=== PATIENT | male | born 1975 | race Caucasian/White ===

== ENCOUNTER 2017-10-21 08:13 | Emergency (ER) | payer BC ==
--- NOTE | 2017-10-21 08:32 | Emergency Department Record ---
History of Present Illness - General Chief Complaint: Altered Mental Status Stated Complaint: ALTERED MENTAL STATE Time Seen by Provider: 10/21/17 08:24 Source: Patient Mode of Arrival: Ambulatory Limitations: No limitations - History of Present Illness Initial Comments: The patient is here by EMS due to being forced to come here by the police. The patient was walking down [address] on the side of the road and due to that police were called. They felt the patient may have been acting erratically so he was forced to come to the ER. The patient made no suicidal or homicidal threats to the police or EMS. Presently the patient denies any problems or issues and does not want to be here. He states he was walking to [place] from [facility] to get something to eat. He again denies any suicidal or homicidal ideation and also denies hearing any voices. The patient also denies any drug use or injury. MD Complaint: Altered mental status Onset/Timin -: Minutes(s) - Gisela Coma Scale Eye Response: (4) Open spontaneously Motor Response: (6) Obeys commands Verbal Response: (5) Oriented Gisela Total: 15 - Related Data Allergies Allergy/AdvReac Type Severity Reaction Status Date / Time No Known Allergies Allergy HYPERSENSIT Verified 10/21/17 08:24 [facility] Travel Screening - Travel/Exposure Within Last 30 Days Have you traveled within the last 30 days?: No - Travel/Exposure Within Last Year Have you traveled outside the [place] in the last year?: No - Additonal Travel Details Have you been exposed to anyone with a communicable illness?: No - Travel Symptoms Symptom Screening: None Review of Systems Constitutional: Denies: Chills, Fever Eyes: Denies: Eye discharge ENT: Denies: Congestion Respiratory: Denies: Cough, Dyspnea Past Medical History - SOCIAL HISTORY Smoking Status: Current every day smoker Alcohol Use: None Drug Use: None - RESPIRATORY Hx Respiratory Disorders: No - CARDIOVASCULAR Hx Cardio Disorders: No - NEURO Hx Neuro Disorders: No - GI Hx Reflux: Yes - Hx Genitourinary Disorders: No - ENDOCRINE Hx Thyroid Disease: Yes - PSYCH Hx Psych Problems: No Family Medical History Any Significant Family History?: Yes Physical Exam - General General Appearance: Alert, Oriented x3, Cooperative, No acute distress - Head Head exam: Atraumatic, Normocephalic, Normal inspection - Eye Eye exam: Normal appearance, PERRL, EOMI - ENT Throat exam: Normal inspection. negative: Tonsillar erythema, Tonsillar exudate - Neck Neck exam: Normal inspection, Full ROM. negative: Tenderness - Respiratory Respiratory exam: Normal lung sounds bilaterally. negative: Respiratory distress - Cardiovascular Cardiovascular Exam: Regular rate, Normal rhythm, Normal heart sounds - GI/Abdominal GI/Abdominal exam: Soft, Normal bowel sounds. negative: Tenderness - Extremities Extremities exam: negative: Normal inspection (There are healing gibson to the L arm.) - Neurological Neurological exam: Alert, Normal gait, Oriented X3 (The patient is answering all questions appropriately. His speech is clear and he exhibits no signs of kody or being under the influence of drugs.). negative: Abnormal gait, Altered , Motor sensory deficit - Psychiatric Psychiatric exam: Normal affect, Normal mood. negative: Agitated, Anxious, Depressed, Flat affect, Homicidal ideation, Manic, Suicidal ideation - Skin Skin exam: negative: Rash Course Vital Signs 10/21/17 08:16 Temperature 97.9 F Pulse Rate 85 Respiratory 18 Rate Blood Pressure 130/96 Pulse Ox 97 - Reevaluation(s) Reevaluation #1: I explained to the patient we would be happy to check some lab work to evaluate his thyroid gland but her refused. He stated he did not want to be here and was refusing his MSE as required by law. Due to that fact and the fact the patient clearly had proper decision making capacity and no suicidal or homicidal ideation I did discharge him from the ER. 10/21/17 08:40 Disposition Disposition: Discharge Clinical Impression: Confusion, hx of, without neuro findings Disposition: Home, Self-Care Condition: (2) Stable Instructions: Second Degree Burn (ED) Additional Instructions: Please keep the burn areas clean. Return to the ER for any problems. Forms: Patient Portal Access Time of Disposition: 08:32 Quality - Quality Measures Quality Measures: N/A - Blood Pressure Screening View Details: Yes Does Patient Have Any of the Following: No Blood Pressure Classification: Hypertensive Reading Systolic Measurement: 130 Diastolic Measurement: 96 Screening for High Blood Pressure: < First Hypertensive BP, F/U Documented > [ [id number]] First Hypertensive Follow-up Interventions: Referral to alternative/primary care provider.
== END 2017-10-21 08:41 | disposition home or self-care (01) ==
LOC: ER 08:13
DX: R41.82 Altered mental status, unspecified (principal); R41.0 Disorientation, unspecified; T22.20XA Burn of second degree of shoulder and upper limb, except wrist and hand, unspecified site, initial encounter; F17.210 Nicotine dependence, cigarettes, uncomplicated
CPT/HCPCS: 99282

== ENCOUNTER 2017-10-22 00:55 | Emergency (ER) | payer BC ==
[2017-10-22 01:25] LABS: BASO % 0.5 % (0-6); EOS % 0.3 % (0-6); GRAN % 77.1 % (47-80); HEMATOCRIT 43.9 % (42.0-52.0); HEMOGLOBIN 15.2 gm/dl (14.0-18.0); LYMPH % 15.9 % (16-45); MEAN CORPUSCULAR HEMOGLOBIN 31.1 pg (27-33); MEAN CORPUSCULAR HGB CONC 34.6 g/dl (32-36); MONO % 6.2 % (0-9); PLATELET COUNT 374 K/uL (130-400); RED BLOOD COUNT 4.88 M/uL (4.40-5.70); WHITE BLOOD COUNT W/O DIFF 14.6 K/uL (4.2-12.2)
[2017-10-22 01:32] LABS: BILIRUBIN,TOTAL 0.8 mg/dL (0.2-1.0); CREATININE 1.5 mg/dL (0.7-1.2)
[2017-10-22 01:33] LABS: TOTAL PROTEIN 7.6 g/dL (6.6-8.7)
[2017-10-22 01:38] LABS: ALB/GLOB RATIO 1.5 (1.1-1.8); ALBUMIN 4.6 g/dL (4.0-5.0)
[2017-10-22 01:59] LABS: URINE APPEARANCE CLEAR; URINE BILIRUBIN SMALL (NEGATIVE); URINE BLOOD MODERATE (NEGATIVE); URINE COLOR STRAW; URINE GLUCOSE (UA) NEGATIVE (NEGATIVE); URINE KETONE TRACE (NEGATIVE); URINE LEUKOCYTE ESTERASE NEGATIVE (NEGATIVE); URINE NITRITE NEGATIVE (NEGATIVE)
[2017-10-22 02:00] LABS: URINE BACTERIA NONE SEEN; URINE EPITHELIAL CELLS 0 - 2 (FEW); URINE WBC 0 - 2 (0-2/hpf)
--- NOTE | 2017-10-22 02:00 | Emergency Department Record ---
History of Present Illness - General Chief Complaint: General Stated Complaint: MEDICAL CLEARENCE Time Seen by Provider: 10/22/17 00:57 Source: Patient, Police, EMS Mode of Arrival: [facility] Limitations: No limitations - History of Present Illness Initial comments: pt was brought in by police for medical clearence as he had been having bizaar behaviour. pt denies hearing voices or hallucinations. he does admit to a hx of iv drug abuse. pt was reportedly sitting in road and looking through windows , pt denies homicidality and suicidality Associated Symptoms: Denies other symptoms Treatments Prior to Arrival: None - Gisela Coma Scale Eye Response: (4) Open spontaneously Motor Response: (6) Obeys commands Verbal Response: (5) Oriented Gisela Total: 15 - Related Data Previous Rx's Medication Instructions Recorded Levothyroxine Sodium 100 mcg PO DAILY #30 tablet 10/22/17 Allergies Allergy/AdvReac Type Severity Reaction Status Date / Time No Known Allergies Allergy HYPERSENSIT Verified 10/21/17 08:24 IVITY Travel Screening - Travel/Exposure Within Last 30 Days Have you traveled within the last 30 days?: No - Travel Symptoms Symptom Screening: None Review of Systems Reviewed: No additional complaints except as noted below Constitutional: Reports: As per HPI. Denies: Chills, Fever, Malaise, Night sweats, Weakness, Weight change Eyes: Reports: As per HPI. Denies: Eye discharge, Eye pain, Photophobia, Vision change ENT: Reports: As per HPI. Denies: Congestion, Dental pain, Ear pain, Epistaxis , Hearing loss, Throat pain Respiratory: Reports: As per HPI. Denies: Cough, Dyspnea, Hemoptysis, Stridor, Wheezes Cardiovascular: Reports: As per HPI. Denies: Arrhythmia, Chest pain, Dyspnea on exertion, Edema, Murmurs, Orthopnea, Palpitations, Paroxysmal nocturnal dyspnea, Rheumatic Fever, Syncope Endocrine: Reports: As per HPI. Denies: Fatigue, Heat or cold intolerance, Polydipsia, Polyuria Gastrointestinal: Reports: As per HPI. Denies: Abdominal pain, Constipation, Diarrhea, Hematemesis, Hematochezia, Melena, Nausea, Vomiting Genitourinary: Reports: As per HPI. Denies: Dysuria, Frequency, Hematuria, Incontinence, Retention, Testicular pain, Testicular mass, Urgency Musculoskeletal: Reports: As per HPI. Denies: Arthralgia, Back pain, Gout, Joint swelling, Myalgia, Neck pain Skin: Reports: As per HPI. Denies: Bruising, Change in color, Change in hair/ nails, Lesions, Pruritus, Rash Neurological: Reports: As per HPI. Denies: Abnormal gait, Confusion, Headache, Numbness, Paresthesias, Seizure, Tingling, Tremors, Vertigo, Weakness Psychiatric: Reports: As per HPI. Denies: Anxiety, Auditory hallucinations, Depression, Homicidal thoughts, Suicidal thoughts, Visual hallucinations Hematological/Lymphatic: Reports: As per HPI. Denies: Anemia, Blood Clots, Easy bleeding, Easy bruising, Swollen glands Past Medical History - SOCIAL HISTORY Smoking Status: Current every day smoker Alcohol Use: None Drug Use: None - RESPIRATORY Hx Respiratory Disorders: No - CARDIOVASCULAR Hx Cardio Disorders: No - NEURO Hx Neuro Disorders: No - GI Hx GI Disorders: Yes Hx Reflux: Yes (DENIES) - Hx Genitourinary Disorders: No - ENDOCRINE Hx Endocrine Disorders: Yes Hx Thyroid Disease: Yes - PSYCH Hx Psych Problems: No - HEMATOLOGY/ONCOLOGY Hx Hematology/Oncology Disorders: No Family Medical History Any Significant Family History?: No Family Hx Comment (NOT TO BE USED IN PLACE OF ITEMS BELOW): denies Physical Exam - General General Appearance: Alert, Oriented x3, Cooperative, No acute distress - Head Head exam: Normal inspection - Eye Eye exam: Normal appearance, PERRL, EOMI Pupils: Normal accommodation - ENT ENT exam: Normal exam, Mucous membranes moist, Normal external ear exam, Normal orophraynx Ear exam: Normal external inspection. negative: External canal tenderness Nasal Exam: Normal inspection. negative: Discharge, Sinus tenderness Mouth exam: Normal external inspection, Tongue normal Teeth exam: Normal inspection. negative: Dental caries Throat exam: Normal inspection. negative: Tonsillar erythema, Tonsillar exudate - Neck Neck exam: Normal inspection, Full ROM. negative: Tenderness - Respiratory Respiratory exam: Normal lung sounds bilaterally. negative: Respiratory distress - Cardiovascular Cardiovascular Exam: Regular rate, Normal rhythm, Normal heart sounds - GI/Abdominal GI/Abdominal exam: Soft, Normal bowel sounds. negative: Tenderness - Rectal Rectal exam: Deferred - exam: Deferred - Extremities Extremities exam: Normal inspection, Full ROM, Normal capillary refill. negative: Tenderness - Back Back exam: Reports: Normal inspection, Full ROM. Denies: Muscle spasm, Rash noted, Tenderness - Neurological Neurological exam: Alert, CN II-XII intact, Normal gait, Oriented X3 - Psychiatric Psychiatric exam: Normal affect, Normal mood - Skin Skin exam: Dry, Intact, Normal color, Warm Course Vital Signs 10/22/17 10/22/17 01:00 01:02 Temperature 98.2 F 98.2 F Pulse Rate [ 72 Pulse Ox Probe] Respiratory 20 18 Rate Blood Pressure 112/77 [Left Arm] Pulse Ox 98 - Reevaluation(s) Reevaluation #1: 10/22/17 02:02 records were obtained from [facility] and [facility] . he had a negative head ct a month ago. he had an ammonia level of 120 a month ago as well. Medical Decision Making - Lab Data Result diagrams: 10/22/17 01:17 10/22/17 01:17 Lab Results 10/22/17 10/22/17 10/22/17 Range/Units 01:17 01:17 01:17 WBC 14.6 H (4.2-12.2) K/uL RBC 4.88 (4.40-5.70) M/uL Hgb 15.2 (14.0-18.0) gm/dl Hct 43.9 (42.0-52.0) % MCV 90.0 (81-97) fl MCH 31.1 (27-33) pg MCHC 34.6 (32-36) g/dl RDW 13.0 (11.5-14.5) % Plt Count 374 (130-400) K/uL MPV 9.0 (7.4-10.4) fl Gran % 77.1 (47-80) % Lymphocytes % 15.9 L (16-45) % Monocytes % 6.2 (0-9) % Eosinophils % 0.3 (0-6) % Basophils % 0.5 (0-6) % Sodium 138 (136-145) mmol/L Potassium 4.5 (3.4-4.5) mmol/L Chloride 95 L (98-107) mmol/L Carbon Dioxide 25.0 (22-29) mmol/L Anion Gap 18.0 H (7-16) BUN 32 H (6-20) mg/dL Creatinine 1.5 H (0.7-1.2) mg/dL Estimated GFR 54 mL/min Random Glucose 90 (74-109) mg/dL Calcium 9.8 (8.6-10.0) mg/dL Total Bilirubin 0.80 (0.2-1.0) mg/dL AST 89 H (10.0-50.0) U/L ALT 69 H (<41) U/L Alkaline Phosphatase 99 (40-129) U/L Ammonia 40 (16.0-60.0) umol/L Total Protein 7.6 (6.6-8.7) g/dL Albumin 4.6 (4.0-5.0) g/dL Globulin 3.0 (1.4-4.8) gm/dL Albumin/Globulin Ratio 1.5 (1.1-1.8) Disposition Disposition: Discharge Clinical Impression: Methamphetamine abuse Hypothyroid Qualifiers: Hypothyroidism type: unspecified Qualified Code(s): E03.9 - Hypothyroidism, unspecified Disposition: Home, Self-Care Condition: (1) Good Instructions: Hypothyroidism (ED) Additional Instructions: follow up with family doctor. return sooner if worse. take thyroid medications as directed Prescriptions: Levothyroxine Sodium 100 mcg PO DAILY #30 tablet Forms: Patient Portal Access Quality - Quality Measures Quality Measures: N/A - Blood Pressure Screening Does Patient Have Any of the Following: No Blood Pressure Classification: Normal BP Reading Systolic Measurement: 112 Diastolic Measurement: 77 Screening for High Blood Pressure: < Normal BP, F/U Not Required > [G8783]
[2017-10-22 02:03] LABS: AMPHETAMINE SCREEN URINE DETECTED; BARBITURATE SCREEN URINE NOT DETECTED; BENZODIAZEPINE SCREEN URINE NOT DETECTED; COCAINE SCREEN URINE NOT DETECTED; METHADONE SCREEN URINE NOT DETECTED; METHAMPHETAMINE SCREEN DETECTED; OPIATE SCREEN URINE NOT DETECTED; OXYCODONE SCREEN URINE NOT DETECTED; PHENCYCLIDINE SCREEN URINE NOT DETECTED; PROPOXYPHENE SCREEN URINE NOT DETECTED; THC SCREEN URINE NOT DETECTED; TRICYCLIC ANTIDEPRESSANT SCRN NOT DETECTED
[2017-10-22 02:09] LABS: THYROID STIMULATING HORMONE 105.5 uIU/mL (0.270-4.20)
[2017-10-22] MEDS ORDERED: 0.9 % SODIUM CHLORIDE 1,000 ML BAG IV ONE (02:11)
[2017-10-22 02:41] LABS: THYROXINE (T4) 0.93 ug/dL (4.5-11.7)
[2017-10-22] MEDS ORDERED: LEVOTHYROXINE SODIUM 100 MCG TABLET PO SCH (02:45)
== END 2017-10-22 03:05 | disposition home or self-care (01) ==
LOC: ER 00:55
DX: F11.10 Opioid abuse, uncomplicated (principal); E03.9 Hypothyroidism, unspecified; F17.210 Nicotine dependence, cigarettes, uncomplicated
CPT/HCPCS: 80053; 80305; 81001; 82140; 84436; 84443; 84479; 85025; 99284; J7030